=== PATIENT | female | born 1945 | race Asian ===

== ENCOUNTER → 2016-07-19 | Outpatient (CLI) | payer OTHER | END | disposition home or self-care (01) | LOC: RADPV 09:29 | PROVIDERS: ATTEND Internal Medicine Nephrology | DX: N18.4 Chronic kidney disease, stage 4 (severe) (principal); N28.1 Cyst of kidney, acquired; N28.9 Disorder of kidney and ureter, unspecified; N13.39 Other hydronephrosis | CPT/HCPCS: 76770 ==

== ENCOUNTER → 2016-09-06 | Outpatient (CLI) | payer OTHER | END | disposition home or self-care (01) | LOC: RADMN 09:39 | PROVIDERS: ATTEND Internal Medicine Nephrology | DX: N13.30 Unspecified hydronephrosis (principal) | CPT/HCPCS: 74176 ==

== ENCOUNTER 2017-02-04 06:43 | Day surgery (SDC) | payer OTHER ==
[~2017-02-04] VITALS: Ht 152.4 cm; Wt 58.6 kg
[~2017-02-04 06:43] MED LIST: AMLO-512 PO; ASPI81 PO; CALC25 PO; CLOP75 PO; FERR-89 PO; INSNPH SQ
[2017-02-04] MEDS ORDERED: SODIUM CHLORIDE 0.9% 1,000 ML IV ONE ×2 (07:00→07:02)
[2017-02-04 08:08] LABS: GLUCOSE,POINT OF CARE 113 MG/DL (70-110)
[2017-02-04 09:28] LABS: EOSINOPHILS % (AUTO) 3.4 % (1.0-6.0); HEMATOCRIT 34.8 % (36-46); HEMOGLOBIN 11.7 g/dL (12.0-16.0); LYMPHOCYTES # (AUTO) 1.3 K/uL (1.0-4.8); LYMPHOCYTES % (AUTO) 20.9 % (22.0-44.0); MEAN CORPUSCULAR HEMOGLOBIN 31.9 pg (26.0-34.0); MEAN CORPUSCULAR HGB CONC 33.7 G/dL (31.0-37.0); MEAN CORPUSCULAR VOLUME 94 fL (80-100); MONOCYTES # (AUTO) 0.2 K/uL (0.1-1.0); MONOCYTES % (AUTO) 3.5 % (2.0-9.0); NEUTROPHILS # (AUTO) 4.4 K/uL (1.8-7.7); NEUTROPHILS % (AUTO) 71.2 % (40.0-70.0); PLATELET COUNT (AUTO) 191 K/uL (150-450); RED BLOOD CELL COUNT(AUTO) 3.69 MIL/uL (4.00-5.20); RED CELL DISTRIBUTION WIDTH 13.5 % (11.5-14.5); WHITE BLOOD COUNT (AUTO) 6.2 K/uL (4.5-11.0)
[2017-02-04] MEDS ORDERED: MIDAZOLAM HCL 2 MG/2 ML VIAL ONE (09:39)
[2017-02-04] MEDS ORDERED: FentaNYL CITRATE-PF 100 MCG/2 ML VIAL ONE (09:39)
[2017-02-04] MEDS ORDERED: LABETALOL HCL 5 MG/ML 20 ML VIAL IVP ONE ×4 (10:18→10:38)
[2017-02-04] MEDS ORDERED: GELATIN SPONGE,ABSORBABLE 12-7 MM TP ONE (10:26)
[2017-02-04 11:56] VITALS: BP 163/82
== END 2017-02-04 17:05 | disposition home or self-care (01) ==
LOC: SDS 06:43
PROVIDERS: ATTEND Internal Medicine Nephrology
DX: I12.9 Hypertensive chronic kidney disease with stage 1 through stage 4 chronic kidney disease, or unspecified chronic kidney disease (principal); E11.22 Type 2 diabetes mellitus with diabetic chronic kidney disease; N18.4 Chronic kidney disease, stage 4 (severe); E78.5 Hyperlipidemia, unspecified; E55.9 Vitamin D deficiency, unspecified; E87.5 Hyperkalemia; E21.3 Hyperparathyroidism, unspecified; K80.80 Other cholelithiasis without obstruction; Z98.42 Cataract extraction status, left eye; Z98.41 Cataract extraction status, right eye; Z79.01 Long term (current) use of anticoagulants; Z79.82 Long term (current) use of aspirin
CPT/HCPCS: 36415; 50200; 77012; 82962; 85025; J3490; J7030; 88300; 88305; 88313; 88346; 88348; J2250; J3010

== ENCOUNTER 2017-03-06 10:32 | Day surgery (SDC) | payer OTHER ==
[~2017-03-06] VITALS: Ht 152.4 cm; Wt 59.1 kg
[2017-03-06] MEDS ORDERED: ONDANSETRON HCL 4 MG/2 ML VIAL IVP ONE (10:33)
[2017-03-06] MEDS ORDERED: HYDROmorphone 2 MG/ML SYRINGE IVP ONE (10:33)
[2017-03-06] MEDS ORDERED: MIDAZOLAM HCL 2 MG/2 ML VIAL IVP ONE (10:33)
[2017-03-06] MEDS ORDERED: PROPOFOL 1% 20 ML VIAL IVP ONE (10:33)
[2017-03-06] MEDS ORDERED: FentaNYL CITRATE-PF 100 MCG/2 ML VIAL IVP ONE (10:33)
[2017-03-06] MEDS ORDERED: SUCCINYLCHOLINE CHLORIDE 20 MG/ML 10 ML VIAL IVP ONE (10:33)
[2017-03-06] MEDS ORDERED: LIDOCAINE HCL/PF 2% 5 ML VIAL IM ONE (10:33)
[2017-03-06] MEDS ORDERED: SODIUM CHLORIDE 0.9% 1,000 ML IV ONE ×2 (11:02→12:00)
[2017-03-06 11:31] LABS: BASOPHILS # (AUTO) 0.04 K/uL (0.00-0.20); BASOPHILS % (AUTO) 0.5 % (0.0-2.0); EOSINOPHILS # (AUTO) 0.54 K/uL (0.00-0.70); EOSINOPHILS % (AUTO) 7.69 % (1.0-6.0); HEMATOCRIT 36.6 % (36-46); HEMOGLOBIN 11.6 g/dL (12.0-16.0); LYMPHOCYTES # (AUTO) 1.9 K/uL (1.0-4.8); LYMPHOCYTES % (AUTO) 27.2 % (22.0-44.0); MEAN CORPUSCULAR HEMOGLOBIN 29.5 pg (26.0-34.0); MEAN CORPUSCULAR HGB CONC 31.5 G/dL (31.0-37.0); MEAN CORPUSCULAR VOLUME 94 fL (80-100); MONOCYTES # (AUTO) 0.3 K/uL (0.1-1.0); MONOCYTES % (AUTO) 4.9 % (2.0-9.0); NEUTROPHILS # (AUTO) 4.2 K/uL (1.8-7.7); NEUTROPHILS % (AUTO) 59.7 % (40.0-70.0); PLATELET COUNT (AUTO) 179 K/uL (150-450); RED BLOOD CELL COUNT(AUTO) 3.91 MIL/uL (4.00-5.20); RED CELL DISTRIBUTION WIDTH 13.7 % (11.5-14.5)
[2017-03-06 11:40] LABS: CALCIUM, TOTAL 8.8 mg/dL (8.8-10.5); CREATININE 2.54 mg/dL (0.60-1.30); POTASSIUM 4.6 mmol/L (3.5-5.1)
[2017-03-06 11:41] LABS: PROTHROMBIN TIME 10.4 SEC (9.4-11.6)
[2017-03-06] MEDS ORDERED: IOTHALAMATE MEGLUMINE 600 MG/ML 50 ML VIAL IVP ONE (11:59)
[2017-03-06] MEDS ORDERED: AMPICILLIN SODIUM/SULBACTAM NA 1.5 GM in SODIUM CHLORIDE 0.9% 50 ML IV ONE (13:00)
[2017-03-06] MEDS ORDERED: RINGERS SOLUTION,LACTATED 1,000 ML IV ONE (14:06)
== END 2017-03-06 16:55 | disposition home or self-care (01) ==
LOC: SURGERY 10:32
PROVIDERS: ATTEND Internal Medicine Gastroenterology
DX: K80.50 Calculus of bile duct without cholangitis or cholecystitis without obstruction (principal); K83.8 Other specified diseases of biliary tract; E11.22 Type 2 diabetes mellitus with diabetic chronic kidney disease; I12.9 Hypertensive chronic kidney disease with stage 1 through stage 4 chronic kidney disease, or unspecified chronic kidney disease; N18.4 Chronic kidney disease, stage 4 (severe); D63.1 Anemia in chronic kidney disease; E78.5 Hyperlipidemia, unspecified; Z79.4 Long term (current) use of insulin; Z79.01 Long term (current) use of anticoagulants; Z90.49 Acquired absence of other specified parts of digestive tract; Z79.02 Long term (current) use of antithrombotics/antiplatelets
CPT/HCPCS: 36415; 43262; 43265; 74328; 80048; 85025; 85610; 93005; J0295; J0330; J1170; J2250; J2405; J2704; J3010; J3490; J7030; J7050; J7120; Q9961

== ENCOUNTER 2017-05-14 15:30 | Emergency (ER) | payer OTHER ==
[~2017-05-14] VITALS: Ht 157.5 cm; Wt 59.1 kg
[~2017-05-14 15:30] MED LIST changes: -CLOP75 PO
[2017-05-14 15:46] LABS: GLUCOSE,POINT OF CARE 124 MG/DL (70-110)
[2017-05-14 17:14] LABS: HEMATOCRIT 33.1 % (36-46); MEAN CORPUSCULAR HGB CONC 33.1 G/dL (31.0-37.0); MEAN CORPUSCULAR VOLUME 94 fL (80-100); PLATELET COUNT (AUTO) 115 K/uL (150-450); RED BLOOD CELL COUNT(AUTO) 3.53 MIL/uL (4.00-5.20)
[2017-05-14 17:18] LABS: CALCIUM, TOTAL 8.8 mg/dL (8.8-10.5); CREATININE 3.15 mg/dL (0.60-1.30); POTASSIUM 3.9 mmol/L (3.5-5.1)
[2017-05-14 17:23] LABS: TOTAL PROTEIN, SERUM 7.9 g/dL (6.4-8.2)
[2017-05-14 17:55] LABS: BAND NEUTROPHILS % (MANUAL) 3 % (1-5); LYMPHOCYTES % (MANUAL) 4 % (22-44); MONOCYTES % (MANUAL) 7 % (2-9); SEGMENTED NEUTROPHILS % 86 % (40-70)
[2017-05-14 17:57] LABS: PLATELET MORPHOLOGY COMMENT DECREASED
[2017-05-14] MEDS ORDERED: BARIUM SULFATE 0.1% SUSPENSION 450 ML BOTTLE PO ONE (20:45)
[2017-05-14 22:32] LABS: GLUCOSE,POINT OF CARE 101 MG/DL (70-110)
[2017-05-15] MEDS ORDERED: MORPHINE SULFATE 4 MG/ML SYRINGE IVP ONE (00:45)
[2017-05-15] MEDS ORDERED: SODIUM CHLORIDE 0.9% 1,000 ML IV ONE (00:45)
[2017-05-15] MEDS ORDERED: ONDANSETRON HCL 4 MG/2 ML VIAL IVP ONE (00:45)
[2017-05-15 02:40] LABS: APPEARANCE,URINE CLEAR (CLEAR); BILIRUBIN,URINE NEGATIVE (NEGATIVE); GLUCOSE, URINE (UA) NEGATIVE (NEGATIVE); KETONES,URINE NEGATIVE (NEGATIVE); LEUKOCYTE ESTERASE ,URINE NEGATIVE (NEGATIVE); NITRATE,URINE NEGATIVE (NEGATIVE); OCCULT BLOOD,URINE TRACE (NEGATIVE); PH,URINE 5.5 (5.0-8.0); PROTEIN,URINE POS 1+ (NEGATIVE); UROBILINOGEN,URINE 0.2 mg/dL (<=1.0)
[2017-05-15 02:54] LABS: BACTERIA,URINE None Seen /HPF (None Seen); WBC,URINE 0-2 /HPF (0-5)
[2017-05-15 04:42] LABS: GLUCOSE,POINT OF CARE 88 MG/DL (70-110)
[2017-05-15] MEDS ORDERED: PIPERACILLIN/TAZO 3.375 GM/D5W 50 ML IV ONE (06:15)
[2017-05-15 08:15] VITALS: BP 145/63
== END 2017-05-15 09:41 | disposition short-term general hospital (02) ==
LOC: EMS 15:33 → UNDOADMIN 05-15 07:04 → 6N 05-15 07:04
DX: K80.50 Calculus of bile duct without cholangitis or cholecystitis without obstruction (principal); E11.9 Type 2 diabetes mellitus without complications; I10 Essential (primary) hypertension
CPT/HCPCS: 36415; 71045; 74176; 80053; 81001; 82948; 82962; 83690; 84484; 85025; 87040; 93005; 96361; 96365; 96375; 99285; J2270; J2405; J2543; J7030

== ENCOUNTER 2017-12-20 16:02 | Emergency (ER) | payer OTHER ==
[~2017-12-20] VITALS: Ht 149.9 cm; Wt 55.9 kg
[2017-12-20 16:48] LABS: BASOPHILS % (AUTO) 0.5 % (0.0-2.0); EOSINOPHILS % (AUTO) 4.7 % (1.0-6.0); HEMATOCRIT 34.4 % (36-46); HEMOGLOBIN 11.7 g/dL (12.0-16.0); LYMPHOCYTES # (AUTO) 2.3 K/uL (1.0-4.8); MEAN CORPUSCULAR HEMOGLOBIN 31.6 pg (26.0-34.0); MEAN CORPUSCULAR HGB CONC 33.9 G/dL (31.0-37.0); MEAN CORPUSCULAR VOLUME 93 fL (80-100); MONOCYTES # (AUTO) 0.5 K/uL (0.1-1.0); MONOCYTES % (AUTO) 3.4 % (2.0-9.0); NEUTROPHILS # (AUTO) 10.7 K/uL (1.8-7.7); NEUTROPHILS % (AUTO) 75.4 % (40.0-70.0); PLATELET COUNT (AUTO) 236 K/uL (150-450); RED BLOOD CELL COUNT(AUTO) 3.69 MIL/uL (4.00-5.20)
[2017-12-20 16:52] LABS: CALCIUM, TOTAL 9.2 mg/dL (8.8-10.5); CREATININE 2.78 mg/dL (0.60-1.30); POTASSIUM 3.9 mmol/L (3.5-5.1)
[2017-12-20 16:54] LABS: ALBUMIN 3.5 g/dL (3.4-5.0); BILIRUBIN,TOTAL 0.6 mg/dL (0.1-1.0); TOTAL PROTEIN, SERUM 8.2 g/dL (6.4-8.2)
[2017-12-20] MEDS ORDERED: KETOROLAC TROMETHAMINE 30 MG/ML VIAL IVP ONE (17:30)
[2017-12-20] MEDS ORDERED: ONDANSETRON HCL 4 MG/2 ML VIAL IVP ONE (17:30)
[2017-12-20] MEDS ORDERED: SODIUM CHLORIDE 0.9% 1,000 ML IV ONE (17:30)
[2017-12-20 18:18] LABS: BILIRUBIN,URINE NEGATIVE (NEGATIVE); GLUCOSE, URINE (UA) NEGATIVE (NEGATIVE); KETONES,URINE NEGATIVE (NEGATIVE); LEUKOCYTE ESTERASE ,URINE NEGATIVE (NEGATIVE); NITRATE,URINE NEGATIVE (NEGATIVE); OCCULT BLOOD,URINE TRACE (NEGATIVE); PROTEIN,URINE SEE CONFIRM (NEGATIVE); UROBILINOGEN,URINE 0.2 mg/dL (<=1.0)
[2017-12-20 18:28] LABS: APPEARANCE,URINE CLEAR (CLEAR)
[2017-12-20 18:29] LABS: BACTERIA,URINE None Seen /HPF (None Seen); RBC,URINE 0-2 /HPF (0-2); SULFOSALICYLIC ACID,URINE 2+ (Negative); WBC,URINE 0-2 /HPF (0-5)
[2017-12-20] MEDS ORDERED: MetroNIDAZOLE 500 MG/NACL 100 ML IV ONE (20:45)
[2017-12-20] MEDS ORDERED: PIPERACILLIN/TAZO 3.375 GM/D5W 50 ML IV ONE (20:45)
[2017-12-20] MEDS ORDERED: IPRATROPIUM BROMIDE 0.5 MG/2.5 ML NEB SOLUTION NEB ONE (22:30)
[2017-12-20] MEDS ORDERED: ALBUTEROL SULFATE 2.5 MG/0.5 ML NEB SOLUTION NEB ONE (22:30)
[2017-12-20 23:58] LABS: GLUCOSE,POINT OF CARE 94 MG/DL (70-110)
[2017-12-21 00:42] VITALS: BP 124/81
== END 2017-12-21 00:54 | disposition short-term general hospital (02) ==
LOC: EMS 16:03
DX: K56.609 Unspecified intestinal obstruction, unspecified as to partial versus complete obstruction (principal); K83.0 Cholangitis; K83.8 Other specified diseases of biliary tract; I10 Essential (primary) hypertension; Z79.82 Long term (current) use of aspirin
CPT/HCPCS: 36415; 74176; 76705; 80053; 81001; 82962; 83605; 83690; 84484; 85025; 87040; 93005; 96361; 96365; 96366; 96367; 96375; 99285; J1885; J2405; J2543; J3490; 96368

== ENCOUNTER 2020-05-08 17:31 | Inpatient (IN) | payer OTHER ==
[~2020-05-08] VITALS: Ht 152.4 cm; Wt 55.8 kg
[~2020-05-08 17:31] MED LIST changes: +AMLO-258 PO; -AMLO-512 PO; +ASPI-728 PO; -ASPI81 PO
[2020-05-08 22:20] LABS: APPEARANCE,URINE CLEAR (CLEAR); BILIRUBIN,URINE NEGATIVE (NEGATIVE); GLUCOSE, URINE (UA) 100 mg/dL (NEGATIVE); KETONES,URINE NEGATIVE (NEGATIVE); LEUKOCYTE ESTERASE ,URINE NEGATIVE (NEGATIVE); NITRATE,URINE NEGATIVE (NEGATIVE); OCCULT BLOOD,URINE SMALL (NEGATIVE); PH,URINE 5.5 (5.0-8.0); PROTEIN,URINE SEE CONFIRM (NEGATIVE); UROBILINOGEN,URINE 0.2 mg/dL (<=1.0)
[2020-05-08 22:29] LABS: BACTERIA,URINE Rare /HPF (None Seen); SQUAMOUS EPITHELIAL CELL,UR Moderate /LPF (None Seen)
[2020-05-08 22:30] LABS: SULFOSALICYLIC ACID,URINE 4+ (Negative)
[2020-05-08 22:42] LABS: LYMPHOCYTES # (AUTO) 1.4 K/uL (1.0-4.8); NEUTROPHILS # (AUTO) 5.7 K/uL (1.8-7.7)
[2020-05-08 22:58] LABS: D-DIMER 2.33 mg/L FEU (0.00-0.50); PROTHROMBIN TIME 10.2 SEC (9.4-11.6)
[2020-05-08 22:59] LABS: ANION GAP 18 mmol/L (8-16); CALCIUM, TOTAL 7.9 mg/dL (8.8-10.5); CARBON DIOXIDE 16 mmol/L (22-29); CHLORIDE 103 mmol/L (98-107); GLOMERULAR FILTR. RATE CALC 4 mL/min (>60); GLUCOSE,RANDOM 138 mg/dL (70-110); POTASSIUM 4.6 mmol/L (3.5-5.1); SODIUM SERUM 137 mmol/L (136-145); UREA NITROGEN, BLOOD 69 mg/dL (7-18)
[2020-05-08 23:01] LABS: B-TYPE NATRIURETIC PEPTIDE 1740 pg/mL (0-100)
[2020-05-08 23:13] LABS: BASOPHILS % (AUTO) 1.3 % (0.0-2.0); LYMPHOCYTES % (AUTO) 18.3 % (22.0-44.0); MEAN CORPUSCULAR HEMOGLOBIN 30.8 pg (26.0-34.0); MEAN CORPUSCULAR HGB CONC 31.4 G/dL (31.0-37.0); MEAN CORPUSCULAR VOLUME 98 fL (80-100); MONOCYTES # (AUTO) 0.4 K/uL (0.1-1.0); MONOCYTES % (AUTO) 4.5 % (2.0-9.0); NEUTROPHILS % (AUTO) 72.9 % (40.0-70.0); PLATELET COUNT (AUTO) 192 K/uL (150-450); RED BLOOD CELL COUNT(AUTO) 2.06 MIL/uL (4.00-5.20); RED CELL DISTRIBUTION WIDTH 19.5 % (11.5-14.5)
[2020-05-08 23:18] LABS: HEMATOCRIT 20.2 % (36-46); HEMOGLOBIN 6.3 g/dL (12.0-16.0)
[2020-05-08 23:26] LABS: INFLUENZA TYPE A NEGATIVE FOR TYPE A (NEGATIVE); INFLUENZA TYPE B NEGATIVE FOR TYPE B (NEGATIVE)
[2020-05-08] MEDS ORDERED: FUROSEMIDE 40 MG/4 ML VIAL IVP ONE (23:30)
[2020-05-08 23:39] LABS: ALANINE AMINOTRANSFERASE 40 U/L (12-78); ALBUMIN 3.5 g/dL (3.4-5.0); ALKALINE PHOSPHATASE 112 U/L (46-116); ASPARTATE AMINOTRANSFERASE 38 U/L (15-37); BILIRUBIN,TOTAL 0.6 mg/dL (0.1-1.0); C-REACTIVE PROTEIN QUANT 0.09 mg/dL (0.00-0.30); CREATINE KINASE, TOTAL ONLY 326 U/L (26-192); FERRITIN 1567 ng/mL (8-252); LACTATE DEHYDROGENASE 366 U/L (81-234); TOTAL PROTEIN, SERUM 7.6 g/dL (6.4-8.2)
[2020-05-09] VITALS (10 sets, daily range): BP systolic 124–187; BP diastolic 74–96
[2020-05-09] MEDS ORDERED: ACETAMINOPHEN 325 MG TABLET PO PRN ×2 (00:30)
[2020-05-09] MEDS ORDERED: DEXTROSE 50%-WATER 25 GM/50 ML SYRINGE IVP PRN (00:30)
[2020-05-09] MEDS ORDERED: ONDANSETRON HCL 4 MG/2 ML VIAL IVP PRN ×2 (00:30)
[2020-05-09 00:37] LABS: LACTIC ACID 2.2 mmol/L (0.4-2.0)
[2020-05-09 00:53] LABS: % IRON SATURATION 58.4 % (22-44); IRON, SERUM 121 mcg/dL (50-175); TOTAL IRON BINDING CAPACITY 207 mcg/dL (250-450)
[2020-05-09 05:19] LABS: HEMATOCRIT 23.5 % (36-46); HEMOGLOBIN 7.5 g/dL (12.0-16.0)
[2020-05-09] MEDS ORDERED: PANTOPRAZOLE SODIUM 40 MG/VIAL IVP ONE (05:30)
[2020-05-09] MEDS: FERROUS SULFATE 325 MG EC TABLET PO SCH (08:00)
[2020-05-09] MEDS ORDERED: ASPIRIN 81 MG CHEWABLE TABLET PO SCH (09:00)
[2020-05-09] MEDS ORDERED: AmLODIPine BESYLATE 10 MG TABLET PO SCH (09:00)
[2020-05-09] MEDS: CALCITRIOL 0.25 MCG CAPSULE PO SCH (10:54)
[2020-05-09] MEDS: METOPROLOL SUCCINATE 25 MG ER TABLET PO SCH (11:54)
[2020-05-09 13:05] LABS: GLUCOMETER DEV NAME(LOC) 5S.1; GLUCOSE,POINT OF CARE 98 MG/DL (70-110)
[2020-05-09] MEDS: VITAMIN B COMP/VIT C/FOLIC ACID CAPSULE PO SCH (13:32)
[2020-05-09] MEDS: SEVELAMER CARBONATE 800 MG TABLET PO SCH (18:29)
[2020-05-09] MEDS ORDERED: PNEUMOCOCCAL VACCINE POLYVALENT 0.5 ML VIAL [PPSV23] IM ONE (20:45)
[2020-05-09] MEDS ORDERED: INFLUENZA VIRUS VACCINE QVS 2020-21 (6MO+)/PF 60 MCG/0.5 ML SYRINGE IM ONE (20:45)
[2020-05-09] MEDS: PANTOPRAZOLE SODIUM 40 MG/VIAL IVP SCH (21:15)
[2020-05-10] VITALS (11 sets, daily range): BP systolic 161–189; BP diastolic 75–97
[2020-05-10] MEDS: METOPROLOL SUCCINATE 25 MG ER TABLET PO SCH ×3 (01:19→22:54)
[2020-05-10 02:44] LABS: GLUCOMETER DEV NAME(LOC) 5N.3; GLUCOSE,POINT OF CARE 118 MG/DL (70-110)
[2020-05-10 07:43] LABS: GLUCOMETER DEV NAME(LOC) 5N.1B; GLUCOSE,POINT OF CARE 84 MG/DL (70-110)
[2020-05-10] MEDS: PANTOPRAZOLE SODIUM 40 MG/VIAL IVP SCH ×2 (08:28→22:54)
[2020-05-10] MEDS: FERROUS SULFATE 325 MG EC TABLET PO SCH (08:28)
[2020-05-10] MEDS: CALCITRIOL 0.25 MCG CAPSULE PO SCH (08:28)
[2020-05-10] MEDS: VITAMIN B COMP/VIT C/FOLIC ACID CAPSULE PO SCH (08:28)
[2020-05-10] MEDS: SEVELAMER CARBONATE 800 MG TABLET PO SCH ×3 (08:28→18:28)
[2020-05-10] MEDS: INSULIN LISPRO 100 UNITS/ML SQ PRN (12:44)
[2020-05-10 23:33] LABS: GLUCOMETER DEV NAME(LOC) 5N.1B; GLUCOSE,POINT OF CARE 103 MG/DL (70-110)
[2020-05-11 04:22] VITALS: BP 169/79
[2020-05-11 07:29] VITALS: BP 179/85
[2020-05-11 07:53] LABS: GLUCOMETER DEV NAME(LOC) 5N.1B; GLUCOSE,POINT OF CARE 79 MG/DL (70-110)
[2020-05-11] MEDS: VITAMIN B COMP/VIT C/FOLIC ACID CAPSULE PO SCH (09:12)
[2020-05-11] MEDS: FERROUS SULFATE 325 MG EC TABLET PO SCH (09:13)
[2020-05-11] MEDS: CALCITRIOL 0.25 MCG CAPSULE PO SCH (09:13)
[2020-05-11] MEDS: SEVELAMER CARBONATE 800 MG TABLET PO SCH ×3 (09:13→17:57)
[2020-05-11] MEDS: PANTOPRAZOLE SODIUM 40 MG/VIAL IVP SCH (09:13)
[2020-05-11 11:03] LABS: EOSINOPHILS % (AUTO) 14.4 % (1.0-6.0); HEMATOCRIT 25.7 % (36-46); HEMOGLOBIN 8.4 g/dL (12.0-16.0); LYMPHOCYTES # (AUTO) 0.8 K/uL (1.0-4.8); MEAN CORPUSCULAR HEMOGLOBIN 30.3 pg (26.0-34.0); MEAN CORPUSCULAR HGB CONC 32.9 G/dL (31.0-37.0); MEAN CORPUSCULAR VOLUME 92 fL (80-100); MONOCYTES # (AUTO) 0.4 K/uL (0.1-1.0); MONOCYTES % (AUTO) 8.3 % (2.0-9.0); NEUTROPHILS # (AUTO) 3.2 K/uL (1.8-7.7); NEUTROPHILS % (AUTO) 61.3 % (40.0-70.0); PLATELET COUNT (AUTO) 120 K/uL (150-450); RED BLOOD CELL COUNT(AUTO) 2.79 MIL/uL (4.00-5.20); RED CELL DISTRIBUTION WIDTH 18.7 % (11.5-14.5)
[2020-05-11 11:20] VITALS: BP 173/84
[2020-05-11 11:29] LABS: CALCIUM, TOTAL 7.1 mg/dL (8.8-10.5); CREATININE 3.79 mg/dL (0.60-1.30); MAGNESIUM 1.7 mg/dL (1.80-2.40); PHOSPHORUS 2.5 mg/dL (2.5-4.9); POTASSIUM 3.5 mmol/L (3.5-5.1)
[2020-05-11] MEDS: INSULIN LISPRO 100 UNITS/ML SQ PRN (11:57)
[2020-05-11] MEDS: METOPROLOL SUCCINATE 25 MG ER TABLET PO SCH ×2 (13:58→21:04)
[2020-05-11 14:28] LABS: GLUCOMETER DEV NAME(LOC) 5N.1B; GLUCOSE,POINT OF CARE 125 MG/DL (70-110)
[2020-05-11 15:37] VITALS: BP 182/77
[2020-05-11 17:24] LABS: CALCIUM, TOTAL 7.7 mg/dL (8.8-10.5); CREATININE 4.2 mg/dL (0.60-1.30); POTASSIUM 3.6 mmol/L (3.5-5.1)
[2020-05-11 17:30] LABS: ALBUMIN 2.5 g/dL (3.4-5.0); BILIRUBIN,TOTAL 0.7 mg/dL (0.1-1.0); TOTAL PROTEIN, SERUM 5.8 g/dL (6.4-8.2)
[2020-05-11 19:40] VITALS: BP 155/73
[2020-05-11] MEDS: PANTOPRAZOLE SODIUM 40 MG DR TABLET PO SCH (21:04)
[2020-05-12] VITALS (8 sets, daily range): BP systolic 161–194; BP diastolic 72–85
[2020-05-12 02:00] LABS: GLUCOMETER DEV NAME(LOC) 5N.1B; GLUCOSE,POINT OF CARE 111 MG/DL (70-110)
[2020-05-12] MEDS: METOPROLOL SUCCINATE 25 MG ER TABLET PO SCH ×2 (05:29→20:03)
[2020-05-12 06:38] LABS: HEMOGLOBIN 8.6 g/dL (12.0-16.0); LYMPHOCYTES # (AUTO) 1.2 K/uL (1.0-4.8); LYMPHOCYTES % (AUTO) 20.6 % (22.0-44.0); MEAN CORPUSCULAR HEMOGLOBIN 30.2 pg (26.0-34.0); MEAN CORPUSCULAR VOLUME 92 fL (80-100); MONOCYTES # (AUTO) 0.5 K/uL (0.1-1.0); MONOCYTES % (AUTO) 9.1 % (2.0-9.0); NEUTROPHILS # (AUTO) 3.1 K/uL (1.8-7.7); NEUTROPHILS % (AUTO) 53.7 % (40.0-70.0); PLATELET COUNT (AUTO) 117 K/uL (150-450); RED BLOOD CELL COUNT(AUTO) 2.83 MIL/uL (4.00-5.20)
[2020-05-12 06:58] LABS: EOSINOPHILS % (AUTO) 15.6 % (1.0-6.0)
[2020-05-12 07:16] LABS: ALBUMIN 2.5 g/dL (3.4-5.0); BILIRUBIN,TOTAL 0.8 mg/dL (0.1-1.0); CREATININE 4.72 mg/dL (0.60-1.30); POTASSIUM 3.5 mmol/L (3.5-5.1); TOTAL PROTEIN, SERUM 5.7 g/dL (6.4-8.2)
[2020-05-12] MEDS: VITAMIN B COMP/VIT C/FOLIC ACID CAPSULE PO SCH (08:39)
[2020-05-12] MEDS: SEVELAMER CARBONATE 800 MG TABLET PO SCH ×3 (08:39→18:49)
[2020-05-12] MEDS: HydrALAZINE HCL 50 MG TABLET PO SCH ×2 (08:39→20:03)
[2020-05-12] MEDS: FERROUS SULFATE 325 MG EC TABLET PO SCH (08:39)
[2020-05-12] MEDS: PANTOPRAZOLE SODIUM 40 MG DR TABLET PO SCH ×2 (08:40→20:03)
[2020-05-12] MEDS: CALCITRIOL 0.25 MCG CAPSULE PO SCH (08:40)
[2020-05-12] MEDS ORDERED: SODIUM CHLORIDE 0.9% 2,000 ML ONE (10:21)
[2020-05-12] MEDS ORDERED: EPOETIN ALFA 10,000 UNITS/ML VIAL SQ SCH (16:00)
[2020-05-12] MEDS ORDERED: AmLODIPine BESYLATE 10 MG TABLET PO ONE (16:00)
[2020-05-13] VITALS (7 sets, daily range): BP systolic 151–180; BP diastolic 63–77
[2020-05-13 06:19] LABS: HEMATOCRIT 29.1 % (36-46); HEMOGLOBIN 9.7 g/dL (12.0-16.0); MEAN CORPUSCULAR HEMOGLOBIN 30.4 pg (26.0-34.0); MEAN CORPUSCULAR HGB CONC 33.3 G/dL (31.0-37.0); MEAN CORPUSCULAR VOLUME 91 fL (80-100); PLATELET COUNT (AUTO) 155 K/uL (150-450); RED BLOOD CELL COUNT(AUTO) 3.19 MIL/uL (4.00-5.20); RED CELL DISTRIBUTION WIDTH 19.1 % (11.5-14.5)
[2020-05-13 07:53] LABS: ALBUMIN 2.9 g/dL (3.4-5.0); BILIRUBIN,TOTAL 0.8 mg/dL (0.1-1.0); CALCIUM, TOTAL 8.3 mg/dL (8.8-10.5); CREATININE 3.11 mg/dL (0.60-1.30); POTASSIUM 3.3 mmol/L (3.5-5.1); TOTAL PROTEIN, SERUM 6.5 g/dL (6.4-8.2)
[2020-05-13] MEDS: HydrALAZINE HCL 50 MG TABLET PO SCH ×3 (08:10→20:31)
[2020-05-13] MEDS: SEVELAMER CARBONATE 800 MG TABLET PO SCH ×2 (08:10→12:07)
[2020-05-13] MEDS: FERROUS SULFATE 325 MG EC TABLET PO SCH (08:10)
[2020-05-13] MEDS: AmLODIPine BESYLATE 10 MG TABLET PO SCH (08:11)
[2020-05-13] MEDS: VITAMIN B COMP/VIT C/FOLIC ACID CAPSULE PO SCH (08:11)
[2020-05-13] MEDS: METOPROLOL SUCCINATE 25 MG ER TABLET PO SCH ×2 (08:11→20:29)
[2020-05-13] MEDS: CALCITRIOL 0.25 MCG CAPSULE PO SCH (08:11)
[2020-05-13] MEDS: PANTOPRAZOLE SODIUM 40 MG DR TABLET PO SCH ×2 (08:11→20:29)
[2020-05-13 08:45] LABS: BAND NEUTROPHILS % (MANUAL) 1 % (0-5); EOSINOPHILS % (MANUAL) 7 % (1-6); LYMPHOCYTES % (MANUAL) 23 % (22-44); MONOCYTES % (MANUAL) 6 % (2-9); SEGMENTED NEUTROPHILS % 63 % (40-70)
[2020-05-13] MEDS ORDERED: HydrALAZINE HCL 20 MG/ML VIAL IVP PRN (11:45)
[2020-05-14] VITALS: BP 147/58
[2020-05-14 03:54] VITALS: BP 175/70
[2020-05-14 06:51] LABS: HEMATOCRIT 25.5 % (36-46); HEMOGLOBIN 8.6 g/dL (12.0-16.0); MEAN CORPUSCULAR HEMOGLOBIN 30.9 pg (26.0-34.0); MEAN CORPUSCULAR VOLUME 91 fL (80-100); PLATELET COUNT (AUTO) 136 K/uL (150-450); RED CELL DISTRIBUTION WIDTH 19.1 % (11.5-14.5)
[2020-05-14 06:58] LABS: BAND NEUTROPHILS % (MANUAL) 0 % (0-5)
[2020-05-14 08:10] LABS: ALBUMIN 2.6 g/dL (3.4-5.0); BILIRUBIN,TOTAL 0.5 mg/dL (0.1-1.0); CALCIUM, TOTAL 8.2 mg/dL (8.8-10.5); CREATININE 4.57 mg/dL (0.60-1.30); POTASSIUM 3.1 mmol/L (3.5-5.1); TOTAL PROTEIN, SERUM 5.8 g/dL (6.4-8.2)
[2020-05-14 08:17] LABS: EOSINOPHILS % (MANUAL) 11 % (1-6); LYMPHOCYTES % (MANUAL) 27 % (22-44); MONOCYTES % (MANUAL) 3 % (2-9); SEGMENTED NEUTROPHILS % 59 % (40-70)
[2020-05-14] MEDS: PANTOPRAZOLE SODIUM 40 MG DR TABLET PO SCH ×2 (08:20→20:50)
[2020-05-14] MEDS: FERROUS SULFATE 325 MG EC TABLET PO SCH (08:20)
[2020-05-14] MEDS: HydrALAZINE HCL 50 MG TABLET PO SCH (08:20)
[2020-05-14] MEDS: VITAMIN B COMP/VIT C/FOLIC ACID CAPSULE PO SCH (08:20)
[2020-05-14] MEDS: AmLODIPine BESYLATE 10 MG TABLET PO SCH (08:20)
[2020-05-14] MEDS: CALCITRIOL 0.25 MCG CAPSULE PO SCH (08:20)
[2020-05-14] MEDS: METOPROLOL SUCCINATE 25 MG ER TABLET PO SCH (08:20)
[2020-05-14 08:26] LABS: PHOSPHORUS 2.5 mg/dL (2.5-4.9)
[2020-05-14 08:38] VITALS: BP 177/69
[2020-05-14] MEDS ORDERED: POTASSIUM CHLORIDE 10 MEQ ER TABLET PO ONE (10:30)
[2020-05-14 12:27] VITALS: BP 147/60
[2020-05-14] MEDS ORDERED: METOPROLOL TARTRATE 25 MG TABLET PO SCH (13:45)
[2020-05-14] MEDS ORDERED: METOPROLOL SUCCINATE 25 MG ER TABLET PO ONE (14:00)
[2020-05-14 16:44] VITALS: BP 154/68
[2020-05-14] MEDS: HydrALAZINE HCL 25 MG TABLET PO SCH ×2 (17:45→20:49)
[2020-05-14 20:20] VITALS: BP 151/60
[2020-05-14] MEDS: METOPROLOL SUCCINATE 50 MG ER TABLET PO SCH (20:50)
[2020-05-15 00:26] VITALS: BP 160/67
[2020-05-15 04:26] VITALS: BP 158/82
[2020-05-15 06:54] LABS: BASOPHILS % (AUTO) 0.9 % (0.0-2.0); HEMATOCRIT 27.2 % (36-46); HEMOGLOBIN 9.2 g/dL (12.0-16.0); LYMPHOCYTES # (AUTO) 1.4 K/uL (1.0-4.8); LYMPHOCYTES % (AUTO) 23.8 % (22.0-44.0); MEAN CORPUSCULAR HEMOGLOBIN 30.8 pg (26.0-34.0); MEAN CORPUSCULAR HGB CONC 33.7 G/dL (31.0-37.0); MEAN CORPUSCULAR VOLUME 92 fL (80-100); MONOCYTES # (AUTO) 0.5 K/uL (0.1-1.0); NEUTROPHILS # (AUTO) 2.8 K/uL (1.8-7.7); NEUTROPHILS % (AUTO) 48.1 % (40.0-70.0); PLATELET COUNT (AUTO) 148 K/uL (150-450); RED BLOOD CELL COUNT(AUTO) 2.97 MIL/uL (4.00-5.20); RED CELL DISTRIBUTION WIDTH 19.3 % (11.5-14.5)
[2020-05-15 07:25] LABS: BILIRUBIN,TOTAL 0.5 mg/dL (0.1-1.0); CREATININE 5.47 mg/dL (0.60-1.30); POTASSIUM 3.7 mmol/L (3.5-5.1); TOTAL PROTEIN, SERUM 6.2 g/dL (6.4-8.2)
[2020-05-15 07:46] VITALS: BP 181/67
[2020-05-15 07:54] LABS: EOSINOPHILS % (AUTO) 19.2 % (1.0-6.0)
[2020-05-15] MEDS: VITAMIN B COMP/VIT C/FOLIC ACID CAPSULE PO SCH (08:17)
[2020-05-15] MEDS: HydrALAZINE HCL 25 MG TABLET PO SCH ×3 (08:17→18:42)
[2020-05-15] MEDS: CALCITRIOL 0.25 MCG CAPSULE PO SCH (08:17)
[2020-05-15] MEDS: METOPROLOL SUCCINATE 50 MG ER TABLET PO SCH (08:17)
[2020-05-15] MEDS: AmLODIPine BESYLATE 10 MG TABLET PO SCH (08:17)
[2020-05-15] MEDS: FERROUS SULFATE 325 MG EC TABLET PO SCH (08:17)
[2020-05-15] MEDS: PANTOPRAZOLE SODIUM 40 MG DR TABLET PO SCH (08:17)
[2020-05-15] MEDS ORDERED: EPOETIN ALFA 10,000 UNITS/ML 2 ML VIAL SQ SCH (09:00)
[2020-05-15 11:15] VITALS: BP 171/64
[2020-05-15 16:00] VITALS: BP 162/72
[2020-05-15] MEDS ORDERED: HYDR25TA84 PO (17:50)
[2020-05-15] MEDS ORDERED: B CO1CAP6 PO (17:50)
[2020-05-15] MEDS ORDERED: AMLO-258 PO (17:50)
[2020-05-15] MEDS ORDERED: METO-391 PO (17:50)
[2020-05-16] MEDS ORDERED: METOPROLOL SUCCINATE 50 MG ER TABLET PO SCH (09:00)
[2020-05-17] MEDS ORDERED: EPOETIN ALFA 10,000 UNITS/ML VIAL SQ SCH (09:00)
== END 2020-05-15 19:00 | disposition home or self-care (01) | DRG 194 ==
LOC: EMS 17:31 → 5N 05-09 00:27 → 5S 05-11 17:00
PROVIDERS: ADMIT Internal Medicine; ATTEND Internal Medicine
PROC: 30233N1 Transfusion of Nonautologous Red Blood Cells into Peripheral Vein, Percutaneous Approach (ICD-10-PCS; principal; 2020-05-09)
PROC: 3E0234Z Introduction of Serum, Toxoid and Vaccine into Muscle, Percutaneous Approach (ICD-10-PCS; 2020-05-09)
PROC: 3E02340 Introduction of Influenza Vaccine into Muscle, Percutaneous Approach (ICD-10-PCS; 2020-05-09)
PROC: 5A1D70Z Performance of Urinary Filtration, Intermittent, Less than 6 Hours Per Day (ICD-10-PCS; 2020-05-09)
PROC: 5A1D70Z Performance of Urinary Filtration, Intermittent, Less than 6 Hours Per Day (ICD-10-PCS; 2020-05-15)
DX: I13.2 Hypertensive heart and chronic kidney disease with heart failure and with stage 5 chronic kidney disease, or end stage renal disease (principal); D64.9 Anemia, unspecified; E11.22 Type 2 diabetes mellitus with diabetic chronic kidney disease; N18.6 End stage renal disease; E87.2 Acidosis; N17.9 Acute kidney failure, unspecified; R19.7 Diarrhea, unspecified; R74.01 Elevation of levels of liver transaminase levels; N26.9 Renal sclerosis, unspecified; E87.6 Hypokalemia; N25.0 Renal osteodystrophy; E78.5 Hyperlipidemia, unspecified; Z20.822 Contact with and (suspected) exposure to COVID-19; R00.2 Palpitations; Z79.82 Long term (current) use of aspirin; Z82.49 Family history of ischemic heart disease and other diseases of the circulatory system; Z79.4 Long term (current) use of insulin; Z99.2 Dependence on renal dialysis; Z83.3 Family history of diabetes mellitus; Z23 Encounter for immunization; Z79.899 Other long term (current) drug therapy; Z90.49 Acquired absence of other specified parts of digestive tract
CPT/HCPCS: 76700; 82728; 83540; 83550; 83605; 83615; 83735; 84100; 84145; 85014; 85018; 85379; 85384; 86140; 86850; 86900; 86901; 86923; 87040; 87045; 87340; 87426; 87804; 93005; 93971; 99291; C9113; J0360; J0885; J1940; J7030; P9016; 36415-L1; 36415-TC; 71045-TC; U0003

== ENCOUNTER 2021-02-10 16:48 | Emergency (ER) | payer OTHER ==
[~2021-02-10] VITALS: Ht 154.9 cm; Wt 56.8 kg
[~2021-02-10 16:48] MED LIST changes: +ASPI-1450 PO; -ASPI-728 PO; +B CO1CAP6 PO; +CALC0.2521 PO; -CALC25 PO; +HYDR25TA84 PO; +METO-391 PO
[2021-02-10 22:42] VITALS: BP 127/80
== END 2021-02-11 00:19 | disposition home or self-care (01) ==
LOC: EMS 16:48
DX: I13.11 Hypertensive heart and chronic kidney disease without heart failure, with stage 5 chronic kidney disease, or end stage renal disease (principal); Z20.1 Contact with and (suspected) exposure to tuberculosis; E11.22 Type 2 diabetes mellitus with diabetic chronic kidney disease; Z79.899 Other long term (current) drug therapy
CPT/HCPCS: 71250; 99284; Z7502

== ENCOUNTER 2022-10-30 21:33 | Inpatient (IN) | payer OTHER ==
[~2022-10-30] VITALS: Ht 149.9 cm; Wt 47.6 kg
[~2022-10-30 21:33] MED LIST changes: -FERR-89 PO; +FERR325T27 PO
[2022-10-30 23:44] LABS: BASOPHILS % (AUTO) 0.1 % (0.0-2.0); EOSINOPHILS % (AUTO) 0 % (1.0-6.0); HEMATOCRIT 36.4 % (36-46); HEMOGLOBIN 11.8 g/dL (12.0-16.0); LYMPHOCYTES # (AUTO) 0.5 K/uL (1.0-4.8); MEAN CORPUSCULAR HEMOGLOBIN 32.1 pg (26.0-34.0); MEAN CORPUSCULAR HGB CONC 32.6 G/dL (31.0-37.0); MEAN CORPUSCULAR VOLUME 99 fL (80-100); MONOCYTES # (AUTO) 0.4 K/uL (0.1-1.0); MONOCYTES % (AUTO) 3.9 % (2.0-9.0); NEUTROPHILS # (AUTO) 8.8 K/uL (1.8-7.7); PLATELET COUNT (AUTO) 189 K/uL (150-450); RED BLOOD CELL COUNT(AUTO) 3.69 MIL/uL (4.00-5.20); RED CELL DISTRIBUTION WIDTH 16.4 % (11.5-14.5)
[2022-10-30 23:53] LABS: CALCIUM, TOTAL 8.9 mg/dL (8.8-10.5); CREATININE 4.38 mg/dL (0.60-1.30); POTASSIUM 5.2 mmol/L (3.5-5.1)
[2022-10-30 23:58] LABS: ALBUMIN 3.6 g/dL (3.4-5.0); BILIRUBIN,TOTAL 0.8 mg/dL (0.1-1.0); TOTAL PROTEIN, SERUM 7.5 g/dL (6.4-8.2)
[2022-10-31] VITALS (10 sets, daily range): BP systolic 95–138; BP diastolic 50–69; PULSE 52–110; RESP 18; TEMP 97.5–98.3
[2022-10-31] MEDS ORDERED: ONDANSETRON HCL 4 MG/2 ML VIAL IVP ONE ×2 (00:15→03:15)
[2022-10-31] MEDS ORDERED: HYDROmorphone HCL 2 MG/ML SYRINGE IVP ONE (03:15)
[2022-10-31 03:28] LABS: PROTHROMBIN TIME 10.9 SEC (9.4-11.6)
[2022-10-31 06:47] LABS: BASOPHILS % (AUTO) 0.4 % (0.0-2.0); EOSINOPHILS % (AUTO) 0.1 % (1.0-6.0); HEMATOCRIT 36.9 % (36-46); HEMOGLOBIN 12.3 g/dL (12.0-16.0); LYMPHOCYTES % (AUTO) 9.4 % (22.0-44.0); MEAN CORPUSCULAR HEMOGLOBIN 32.5 pg (26.0-34.0); MEAN CORPUSCULAR HGB CONC 33.3 G/dL (31.0-37.0); MEAN CORPUSCULAR VOLUME 98 fL (80-100); MONOCYTES # (AUTO) 0.7 K/uL (0.1-1.0); MONOCYTES % (AUTO) 6.2 % (2.0-9.0); NEUTROPHILS # (AUTO) 9.3 K/uL (1.8-7.7); NEUTROPHILS % (AUTO) 83.9 % (40.0-70.0); PLATELET COUNT (AUTO) 157 K/uL (150-450); RED BLOOD CELL COUNT(AUTO) 3.77 MIL/uL (4.00-5.20)
[2022-10-31 07:09] LABS: ALBUMIN 3.1 g/dL (3.4-5.0); BILIRUBIN,TOTAL 0.7 mg/dL (0.1-1.0); CALCIUM, TOTAL 8.2 mg/dL (8.8-10.5); CREATININE 4.9 mg/dL (0.60-1.30); TOTAL PROTEIN, SERUM 6.6 g/dL (6.4-8.2)
[2022-10-31 07:11] LABS: POTASSIUM 6.5 mmol/L (3.5-5.1)
[2022-10-31] MEDS ORDERED: DEXTROSE 50%-WATER 25 GM/50 ML SYRINGE IVP PRN (07:30)
[2022-10-31] MEDS ORDERED: ONDANSETRON HCL 4 MG/2 ML VIAL IVP PRN (07:30)
[2022-10-31] MEDS ORDERED: INSULIN LISPRO 100 UNITS/ML SQ PRN (07:30)
[2022-10-31] MEDS: FAMOTIDINE 20 MG TABLET PO SCH (08:29)
[2022-10-31] MEDS: HEPARIN SODIUM,PORCINE 5,000 UNITS/ML VIAL SQ SCH ×3 (08:29→23:25)
[2022-10-31] MEDS: DOCUSATE SODIUM 100 MG CAPSULE PO SCH ×2 (08:29→20:23)
[2022-10-31 18:02] LABS: GLUCOMETER DEV NAME(LOC) 5N.1C
[2022-10-31] MEDS: ACETAMINOPHEN 325 MG TABLET PO PRN (20:24)
[2022-11-01] VITALS (11 sets, daily range): BP systolic 116–163; BP diastolic 49–71; PULSE 62–85; RESP 17–18; TEMP 97.2–100.2
[2022-11-01 00:22] LABS: GLUCOMETER DEV NAME(LOC) 5N.2C
[2022-11-01] MEDS: DOCUSATE SODIUM 100 MG CAPSULE PO SCH (08:58)
[2022-11-01] MEDS: FAMOTIDINE 20 MG TABLET PO SCH (08:58)
[2022-11-01] MEDS: HEPARIN SODIUM,PORCINE 5,000 UNITS/ML VIAL SQ SCH ×2 (08:58→16:00)
[2022-11-01] MEDS: ACETAMINOPHEN 325 MG TABLET PO PRN (09:06)
[2022-11-01 09:39] LABS: BASOPHILS % (AUTO) 0.7 % (0.0-2.0); EOSINOPHILS % (AUTO) 6.1 % (1.0-6.0); HEMATOCRIT 32.7 % (36-46); HEMOGLOBIN 10.8 g/dL (12.0-16.0); LYMPHOCYTES # (AUTO) 1.3 K/uL (1.0-4.8); LYMPHOCYTES % (AUTO) 12.4 % (22.0-44.0); MEAN CORPUSCULAR HGB CONC 32.9 G/dL (31.0-37.0); MEAN CORPUSCULAR VOLUME 101 fL (80-100); MONOCYTES # (AUTO) 0.9 K/uL (0.1-1.0); MONOCYTES % (AUTO) 8.4 % (2.0-9.0); NEUTROPHILS # (AUTO) 7.6 K/uL (1.8-7.7); NEUTROPHILS % (AUTO) 72.4 % (40.0-70.0); PLATELET COUNT (AUTO) 140 K/uL (150-450); RED BLOOD CELL COUNT(AUTO) 3.26 MIL/uL (4.00-5.20); RED CELL DISTRIBUTION WIDTH 17.4 % (11.5-14.5)
[2022-11-01 09:51] LABS: CALCIUM, TOTAL 8.7 mg/dL (8.8-10.5); CREATININE 5.15 mg/dL (0.60-1.30); POTASSIUM 4.9 mmol/L (3.5-5.1)
[2022-11-01 17:36] LABS: GLUCOMETER DEV NAME(LOC) 5N.1C
[2022-11-01 17:36] LABS: GLUCOMETER DEV NAME(LOC) 5N.1C
[2022-11-01 20:46] LABS: GLUCOMETER DEV NAME(LOC) 5S.1B
== END 2022-11-01 18:30 | disposition home or self-care (01) | DRG 254 ==
LOC: EMS 21:34 → ICUN 10-31 05:00 → 5S 10-31 13:22
PROVIDERS: ADMIT Internal Medicine; ATTEND Internal Medicine
PROC: 5A1D70Z Performance of Urinary Filtration, Intermittent, Less than 6 Hours Per Day (ICD-10-PCS; principal; 2022-10-31)
PROC: 5A1D70Z Performance of Urinary Filtration, Intermittent, Less than 6 Hours Per Day (ICD-10-PCS; 2022-11-01)
DX: K42.0 Umbilical hernia with obstruction, without gangrene (principal); I12.0 Hypertensive chronic kidney disease with stage 5 chronic kidney disease or end stage renal disease; D63.1 Anemia in chronic kidney disease; E11.22 Type 2 diabetes mellitus with diabetic chronic kidney disease; N18.6 End stage renal disease; E11.51 Type 2 diabetes mellitus with diabetic peripheral angiopathy without gangrene; E87.5 Hyperkalemia; Z79.4 Long term (current) use of insulin; Z79.82 Long term (current) use of aspirin; Z82.49 Family history of ischemic heart disease and other diseases of the circulatory system; Z83.3 Family history of diabetes mellitus; Z87.442 Personal history of urinary calculi; Z99.2 Dependence on renal dialysis; Z79.899 Other long term (current) drug therapy; Z90.49 Acquired absence of other specified parts of digestive tract
CPT/HCPCS: 74176; 80048; 80053; 82962; 83605; 83690; 84484; 85025; 85610; 85730; 87081; 87340; 90935; 93005; 99291; J1170; J1644; J2405